=== PATIENT | male | born 1965 | race Two or more races ===

== ENCOUNTER 2020-03-30 14:59 | Inpatient (IN) | payer MEDICAID, OTHER ==
[~2020-03-30] VITALS: Ht 165.1 cm; Wt 104.0 kg
[2020-03-30 15:29] LABS: Basophils # (auto) 0 10 ^3/uL (0-0.2); Basophils % (auto) 0.3 % (0.0-2.0); Eosinophils # (auto) 0.1 10 ^3/uL (0-0.8); Eosinophils % (auto) 0.8 % (0.0-7.0); Hematocrit 36.9 % (41.0-53.0); Hemoglobin 12.4 g/dL (13.5-17.5); Lymphocytes # (auto) 1.1 10 ^3/uL (0.4-5.4); Mean Corpuscular Hemoglobin 28.8 pg (28.0-32.0); Mean Corpuscular Hgb Conc. 33.5 g/dL (32.0-36.0); Mean Corpuscular Volume 85.9 fL (80.0-100.0); Monocytes # (auto) 0.8 10 ^3/uL (0-1.3); Monocytes % (auto) 9.2 % (0.0-12.0); Neutrophils # (auto) 6.9 10 ^3/uL (1.6-8.6); Neutrophils % (auto) 77.7 % (37.0-80.0); Platelet Count (auto) 219 10^3/uL (140-450); Red Cell Distribution Width 13.6 % (11.8-14.3); White Blood Cell 8.8 10^3/uL (4.4-10.8)
[2020-03-30 15:40] LABS: Albumin 3.2 g/dL (3.4-5.0); BUN/Creatinine Ratio 15.7; Calcium 8.8 mg/dL (8.5-10.1); Potassium 4.3 mmol/L (3.5-5.1)
[2020-03-30 15:45] LABS: Bilirubin, Total 0.5 mg/dL (0.2-1.0); Total Protein 6.8 g/dL (6.4-8.2)
[2020-03-30 16:08] LABS: Urine Bacteria NONE SEEN /hpf (None Seen); Urine Blood Negative /uL (Negative); Urine Hyaline Cast FEW /lpf (0 - 2); Urine Specific Gravity 1.013 (1.001-1.035); Urine WBC 2 /hpf (0 - 3)
[2020-03-30] MEDS ORDERED: ASPirin 81 mg TAB PO ONE (16:15)
[2020-03-30] MEDS ORDERED: ENOXAPARIN SOD 100 MG/1 ML SYRINGE SC ONE (16:15)
[2020-03-30] MEDS ORDERED: FUROSEMIDE 20 MG/2 ML VIAL IV ONE (17:30)
[2020-03-30] MEDS ORDERED: NITROGLYCERIN 0.4 MG SL TAB SL PRN (17:30)
[2020-03-30] MEDS ORDERED: MORPHINE SULF INJ 2 MG/ML SYRINGE 1ML IV PRN ×2 (17:30)
[2020-03-30] MEDS ORDERED: hydrALAZINE HCL 20 MG/ML VL IV PRN (17:30)
[2020-03-30] MEDS ORDERED: HYDROcodone-ACET 5/325MG TAB PO PRN (17:30)
[2020-03-30] MEDS ORDERED: ONDANSETRON HCL 4 MG/2 ML VIAL IV PRN (17:30)
[2020-03-30] MEDS ORDERED: ENALAPRILAT 1.25 MG/ML-1ML VIAL IV PRN (17:30)
[2020-03-30] MEDS ORDERED: HEPARIN DRIP/D5W 100UNITS/ML 250 ML IV SCH (17:30)
[2020-03-30] MEDS ORDERED: ACETAMINOPHEN 500 MG TAB PO PRN (17:30)
[2020-03-30 18:15] LABS: INR 1.12 (0.9-1.15); Partial Thromboplastin Time 28.5 sec (23.0-31.2)
[2020-03-30] MEDS ORDERED: CLOPIDOGREL BISULFATE 75 MG TAB PO ONE (18:45)
[2020-03-30] MEDS: DOCUSATE SOD 100 MG CAP PO SCH (22:00)
[2020-03-30] MEDS: ATORVASTATIN 20 MG TAB PO SCH (22:00)
[2020-03-31 01:31] LABS: Basophils # (auto) 0 10 ^3/uL (0-0.2); Basophils % (auto) 0.4 % (0.0-2.0); Eosinophils # (auto) 0.1 10 ^3/uL (0-0.8); Eosinophils % (auto) 1.2 % (0.0-7.0); Hematocrit 37.4 % (41.0-53.0); Hemoglobin 12.5 g/dL (13.5-17.5); Lymphocytes # (auto) 1.6 10 ^3/uL (0.4-5.4); Lymphocytes % (auto) 20.6 % (10.0-50.0); Mean Corpuscular Hemoglobin 28.8 pg (28.0-32.0); Mean Corpuscular Hgb Conc. 33.5 g/dL (32.0-36.0); Monocytes # (auto) 0.7 10 ^3/uL (0-1.3); Monocytes % (auto) 9.3 % (0.0-12.0); Neutrophils # (auto) 5.4 10 ^3/uL (1.6-8.6); Neutrophils % (auto) 68.5 % (37.0-80.0); Nucleated Red Blood Cells % 0.1 %; Platelet Count (auto) 256 10^3/uL (140-450); Red Blood Cells 4.35 10^6/uL (4.5-5.90); Red Cell Distribution Width 13.6 % (11.8-14.3)
[2020-03-31 01:44] LABS: INR 1.17 (0.9-1.15)
[2020-03-31] MEDS ORDERED: HEPARIN SODIUM (PORCINE) 5000 UNITS/ML 1ML VIAL IV ONE (02:15)
[2020-03-31] MEDS ORDERED: GLUCAGON HYDROCHLORIDE (RDNA) 1 MG VIAL IV ONE (02:45)
[2020-03-31] MEDS: HEPARIN DRIP/D5W 100UNITS/ML 250 ML IV SCH (07:30)
[2020-03-31 08:47] LABS: INR 1.19 (0.9-1.15); Partial Thromboplastin Time 38.4 sec (23.0-31.2)
[2020-03-31] MEDS: ASPirin-EC 81 mg tab PO SCH (10:35)
[2020-03-31] MEDS: FAMOTIDINE 20 MG TAB PO SCH (10:35)
[2020-03-31] MEDS: DOCUSATE SOD 100 MG CAP PO SCH ×2 (10:35→21:48)
[2020-03-31] MEDS: CLOPIDOGREL BISULFATE 75 MG TAB PO SCH (10:35)
[2020-03-31] MEDS: LISINOPRIL 10 MG TAB PO SCH (10:36)
[2020-03-31 10:57] LABS: Cholesterol 159 mg/dL (< 200)
[2020-03-31 11:00] LABS: HDL Cholesterol 30 mg/dL (40-59); LDL Cholesterol 110 mg/dL (< 100); Triglycerides 130 mg/dL (< 150)
[2020-03-31] MEDS: NITROGLYCERIN 0.4MG/HR TOPICAL PATCH TD SCH (11:00)
[2020-03-31 15:27] LABS: INR 1.3 (0.9-1.15); Partial Thromboplastin Time 55.3 sec (23.0-31.2)
[2020-03-31 18:05] VITALS: BP 111/71
[2020-03-31 18:15] VITALS: BP 111/71
[2020-03-31 18:30] VITALS: BP 116/66
[2020-03-31 20:00] VITALS: BP 112/57
[2020-03-31] MEDS ORDERED: METF-370 PO (20:35)
[2020-03-31] MEDS ORDERED: LISI40TA11 PO (20:35)
[2020-03-31 21:23] LABS: INR 1.17 (0.9-1.15); Partial Thromboplastin Time 45.2 sec (23.0-31.2)
[2020-03-31] MEDS: ATORVASTATIN 20 MG TAB PO SCH (21:48)
[2020-04-01] VITALS (21 sets, daily range): BP systolic 104–177; BP diastolic 49–109
[2020-04-01] MEDS: HEPARIN DRIP/D5W 100UNITS/ML 250 ML IV SCH (03:35)
[2020-04-01 04:19] LABS: Basophils # (auto) 0.1 10 ^3/uL (0-0.2); Basophils % (auto) 0.6 % (0.0-2.0); Eosinophils # (auto) 0.3 10 ^3/uL (0-0.8); Eosinophils % (auto) 3.3 % (0.0-7.0); Hematocrit 38.8 % (41.0-53.0); Hemoglobin 12.8 g/dL (13.5-17.5); Lymphocytes # (auto) 2.4 10 ^3/uL (0.4-5.4); Lymphocytes % (auto) 28.7 % (10.0-50.0); Mean Corpuscular Hemoglobin 28.5 pg (28.0-32.0); Mean Corpuscular Volume 86.5 fL (80.0-100.0); Monocytes # (auto) 0.9 10 ^3/uL (0-1.3); Monocytes % (auto) 10.9 % (0.0-12.0); Neutrophils # (auto) 4.8 10 ^3/uL (1.6-8.6); Neutrophils % (auto) 56.5 % (37.0-80.0); Platelet Count (auto) 296 10^3/uL (140-450); Red Blood Cells 4.48 10^6/uL (4.5-5.90); Red Cell Distribution Width 13.8 % (11.8-14.3); White Blood Cell 8.5 10^3/uL (4.4-10.8)
[2020-04-01 04:36] LABS: INR 1.13 (0.9-1.15); Partial Thromboplastin Time 47.6 sec (23.0-31.2)
[2020-04-01 04:44] LABS: Potassium 3.6 mmol/L (3.5-5.1)
[2020-04-01 04:46] LABS: BUN/Creatinine Ratio 13.1
[2020-04-01 04:48] LABS: Calcium 8.6 mg/dL (8.5-10.1)
[2020-04-01] MEDS: FAMOTIDINE 20 MG TAB PO SCH (09:58)
[2020-04-01] MEDS: DOCUSATE SOD 100 MG CAP PO SCH ×2 (09:59→20:50)
[2020-04-01] MEDS: ASPirin-EC 81 mg tab PO SCH (09:59)
[2020-04-01] MEDS: LISINOPRIL 10 MG TAB PO SCH (09:59)
[2020-04-01] MEDS: NITROGLYCERIN 0.4MG/HR TOPICAL PATCH TD SCH (10:00)
[2020-04-01] MEDS: CLOPIDOGREL BISULFATE 75 MG TAB PO SCH (10:23)
[2020-04-01 10:30] LABS: INR 1.14 (0.9-1.15); Partial Thromboplastin Time 59.4 sec (23.0-31.2)
[2020-04-01] MEDS ORDERED: IODIXANOL 320MG/ML 100ML BTL IV ONE ×2 (12:46→13:48)
[2020-04-01] MEDS ORDERED: LIDOCAINE 2%HCL (LOCAL ANESTH.) INJ 20ML MDV ONE (12:46)
[2020-04-01] MEDS ORDERED: HEPARIN SODIUM (PORCINE) 5000 UNITS/ML 1ML VIAL ONE (12:59)
[2020-04-01] MEDS ORDERED: VERAPAMIL 2.5MG/ML INJ 2ML VIAL IV ONE (12:59)
[2020-04-01] MEDS ORDERED: fentaNYL CITRATE 100 MCG/2 ML VL ONE (12:59)
[2020-04-01] MEDS ORDERED: ANGIOMAX 250 MG VIAL IV ONE (12:59)
[2020-04-01] MEDS ORDERED: MIDAZOLAM HCL 1MG/1ML-2 ML VIAL ONE (13:00)
[2020-04-01] MEDS ORDERED: SODIUM CHL 0.9% 0 ML ONE (13:00)
[2020-04-01] MEDS: ATORVASTATIN 20 MG TAB PO SCH (20:49)
[2020-04-02] VITALS (22 sets, daily range): BP systolic 107–148; BP diastolic 56–96
[2020-04-02] MEDS: FAMOTIDINE 20 MG TAB PO SCH (09:57)
[2020-04-02] MEDS: LISINOPRIL 10 MG TAB PO SCH (09:58)
[2020-04-02] MEDS: NITROGLYCERIN 0.4MG/HR TOPICAL PATCH TD SCH (10:00)
[2020-04-02] MEDS: DOCUSATE SOD 100 MG CAP PO SCH ×2 (10:00→22:00)
[2020-04-02] MEDS: SODIUM CHLORIDE 0.9% 1,000 ML IV SCH ×2 (10:16→22:00)
[2020-04-02] MEDS ORDERED: ENOXAPARIN SOD 100 MG/1 ML SYRINGE SC ONE (12:00)
[2020-04-02] MEDS ORDERED: ACCU-CHEK COMFORT CURVE STRIP VI ONE ×2 (12:45→17:00)
[2020-04-02] MEDS ORDERED: ACETYLCYSTEINE ORAL for CIN 20%(200MG/ML) 4ML PO ONE (12:45)
[2020-04-02] MEDS ORDERED: DEXTROSE (50%) 50ML SYRG IV ONE (12:45)
[2020-04-02 13:50] LABS: BUN/Creatinine Ratio 12.5; Calcium 7.9 mg/dL (8.5-10.1); Potassium 3.8 mmol/L (3.5-5.1)
[2020-04-02] MEDS ORDERED: InsuLIN REG 1unit/0.01ml Soln (100units/ml) SC ONE (17:00)
[2020-04-02] MEDS: ACCU-CHEK COMFORT CURVE STRIP VI SCH ×2 (18:26→22:17)
[2020-04-02] MEDS: ATORVASTATIN 20 MG TAB PO SCH (22:16)
[2020-04-02] MEDS: ENOXAPARIN SOD 100 MG/1 ML SYRINGE SC SCH (22:17)
[2020-04-02] MEDS: ACETYLCYSTEINE ORAL for CIN 20%(200MG/ML) 4ML PO SCH (22:19)
[2020-04-03] VITALS (21 sets, daily range): BP systolic 127–173; BP diastolic 80–110
[2020-04-03] MEDS: SODIUM CHLORIDE 0.9% 1,000 ML IV SCH (02:25)
[2020-04-03 05:02] LABS: Basophils # (auto) 0 10 ^3/uL (0-0.2); Basophils % (auto) 0.2 % (0.0-2.0); Eosinophils # (auto) 0.1 10 ^3/uL (0-0.8); Eosinophils % (auto) 2.1 % (0.0-7.0); Hematocrit 33.5 % (41.0-53.0); Lymphocytes # (auto) 0.8 10 ^3/uL (0.4-5.4); Lymphocytes % (auto) 13.4 % (10.0-50.0); Mean Corpuscular Hemoglobin 28.3 pg (28.0-32.0); Mean Corpuscular Hgb Conc. 32.8 g/dL (32.0-36.0); Mean Corpuscular Volume 86.4 fL (80.0-100.0); Monocytes # (auto) 0.8 10 ^3/uL (0-1.3); Monocytes % (auto) 12.3 % (0.0-12.0); Neutrophils # (auto) 4.5 10 ^3/uL (1.6-8.6); Platelet Count (auto) 261 10^3/uL (140-450); Red Blood Cells 3.88 10^6/uL (4.5-5.90); Red Cell Distribution Width 13.5 % (11.8-14.3); White Blood Cell 6.2 10^3/uL (4.4-10.8)
[2020-04-03 05:19] LABS: INR 1.18 (0.9-1.15); Partial Thromboplastin Time 33.9 sec (23.0-31.2)
[2020-04-03 05:33] LABS: Calcium 8.6 mg/dL (8.5-10.1); Potassium 3.7 mmol/L (3.5-5.1)
[2020-04-03 05:36] LABS: BUN/Creatinine Ratio 11.8
[2020-04-03] MEDS: ACCU-CHEK COMFORT CURVE STRIP VI SCH ×3 (06:35→17:00)
[2020-04-03] MEDS: DOCUSATE SOD 100 MG CAP PO SCH ×2 (09:22→22:00)
[2020-04-03] MEDS: NITROGLYCERIN 0.4MG/HR TOPICAL PATCH TD SCH (09:28)
[2020-04-03] MEDS: LISINOPRIL 10 MG TAB PO SCH (09:29)
[2020-04-03] MEDS: ENOXAPARIN SOD 100 MG/1 ML SYRINGE SC SCH ×2 (09:30→22:15)
[2020-04-03] MEDS ORDERED: MIDAZOLAM HCL 1MG/1ML-2 ML VIAL ONE ×2 (09:35→10:27)
[2020-04-03] MEDS ORDERED: diphenhdrAMINE HCL 50 MG/1 ML VL ONE (09:35)
[2020-04-03] MEDS ORDERED: fentaNYL CITRATE 100 MCG/2 ML VL ONE ×2 (09:35→10:27)
[2020-04-03] MEDS ORDERED: VANCOMYCIN HCL 1000 MG VL ONE (09:35)
[2020-04-03] MEDS ORDERED: VANCOMYCIN 1GM/250ML 250 ML IV ONE (09:36)
[2020-04-03] MEDS ORDERED: LIDOCAINE 2%HCL (LOCAL ANESTH.) INJ 20ML MDV ONE (09:36)
[2020-04-03] MEDS: FAMOTIDINE 20 MG TAB PO SCH ×2 (10:00→12:23)
[2020-04-03] MEDS ORDERED: IOHEXOL 350 MG/ML 100ML IJ ONE (10:13)
[2020-04-03] MEDS: ACETYLCYSTEINE ORAL for CIN 20%(200MG/ML) 4ML PO SCH (12:25)
[2020-04-03] MEDS ORDERED: CLOPIDOGREL BISULFATE 75 MG TAB PO ONE (14:15)
[2020-04-03] MEDS ORDERED: METOPROLOL TARTRATE 50 MG TAB PO ONE (14:15)
[2020-04-03] MEDS ORDERED: LOSARTAN POTASSIUM 50 MG TAB PO ONE (14:15)
[2020-04-03] MEDS ORDERED: ASPirin-EC 81 mg tab PO ONE (14:15)
[2020-04-03] MEDS: cloNIDine HCL 0.1 MG TAB PO PRN (16:19)
[2020-04-03] MEDS: ATORVASTATIN 20 MG TAB PO SCH (22:15)
[2020-04-04 05:00] VITALS: BP 141/79
[2020-04-04 09:00] VITALS: BP 146/96
[2020-04-04] MEDS: FAMOTIDINE 20 MG TAB PO SCH (10:00)
[2020-04-04] MEDS: DOCUSATE SOD 100 MG CAP PO SCH ×2 (10:00→22:00)
[2020-04-04] MEDS: LOSARTAN POTASSIUM 50 MG TAB PO SCH (10:33)
[2020-04-04] MEDS: METOPROLOL TARTRATE 50 MG TAB PO SCH (10:34)
[2020-04-04] MEDS: CLOPIDOGREL BISULFATE 75 MG TAB PO SCH (11:17)
[2020-04-04] MEDS: ASPirin-EC 81 mg tab PO SCH (11:17)
[2020-04-04] MEDS: ENOXAPARIN SOD 100 MG/1 ML SYRINGE SC SCH ×2 (11:17→22:00)
[2020-04-04] MEDS: cloNIDine HCL 0.1 MG TAB PO PRN (12:25)
[2020-04-04 13:00] VITALS: BP 155/94
[2020-04-04 17:00] VITALS: BP 145/96
[2020-04-04 22:00] VITALS: BP 142/92
[2020-04-04] MEDS: ATORVASTATIN 20 MG TAB PO SCH (22:11)
[2020-04-05 05:00] VITALS: BP 159/96
[2020-04-05 05:45] LABS: Basophils # (auto) 0 10 ^3/uL (0-0.2); Basophils % (auto) 0.5 % (0.0-2.0); Eosinophils # (auto) 0.3 10 ^3/uL (0-0.8); Eosinophils % (auto) 4.5 % (0.0-7.0); Hematocrit 32.5 % (41.0-53.0); Lymphocytes # (auto) 1.1 10 ^3/uL (0.4-5.4); Lymphocytes % (auto) 19.2 % (10.0-50.0); Mean Corpuscular Hemoglobin 28.9 pg (28.0-32.0); Mean Corpuscular Hgb Conc. 33.7 g/dL (32.0-36.0); Mean Corpuscular Volume 85.6 fL (80.0-100.0); Monocytes # (auto) 0.5 10 ^3/uL (0-1.3); Monocytes % (auto) 9.1 % (0.0-12.0); Neutrophils % (auto) 66.7 % (37.0-80.0); Platelet Count (auto) 284 10^3/uL (140-450); Red Cell Distribution Width 13.4 % (11.8-14.3); White Blood Cell 5.9 10^3/uL (4.4-10.8)
[2020-04-05 06:02] LABS: BUN/Creatinine Ratio 18.3; Calcium 8.4 mg/dL (8.5-10.1); INR 1.13 (0.9-1.15); Partial Thromboplastin Time 31.3 sec (23.0-31.2); Potassium 4.1 mmol/L (3.5-5.1)
[2020-04-05 07:30] VITALS: BP 163/104
[2020-04-05] MEDS ORDERED: IOHEXOL 350 MG/ML 100ML IJ ONE ×2 (09:00→09:36)
[2020-04-05] MEDS ORDERED: LIDOCAINE 2%HCL (LOCAL ANESTH.) INJ 20ML MDV ONE (09:00)
[2020-04-05] MEDS ORDERED: SODIUM CHL 0.9% 50 ML ONE ×2 (09:01→09:41)
[2020-04-05] MEDS ORDERED: ANGIOMAX 250 MG VIAL IV ONE ×2 (09:01→09:41)
[2020-04-05] MEDS ORDERED: fentaNYL CITRATE 100 MCG/2 ML VL ONE (09:01)
[2020-04-05] MEDS ORDERED: MIDAZOLAM HCL 1MG/1ML-2 ML VIAL ONE (09:01)
[2020-04-05] MEDS ORDERED: hydrALAZINE HCL 20 MG/ML VL ONE (09:26)
[2020-04-05] MEDS: ENOXAPARIN SOD 100 MG/1 ML SYRINGE SC SCH (10:00)
[2020-04-05] MEDS: DOCUSATE SOD 100 MG CAP PO SCH (10:00)
[2020-04-05] MEDS ORDERED: CLOPIDOGREL BISULFATE 75 MG TAB ONE (10:06)
[2020-04-05] MEDS ORDERED: ASPirin 81 mg TAB ONE (10:07)
[2020-04-05 12:32] VITALS: BP 149/103
[2020-04-05] MEDS: METOPROLOL TARTRATE 50 MG TAB PO SCH (12:34)
[2020-04-05] MEDS: ASPirin-EC 81 mg tab PO SCH (12:34)
[2020-04-05] MEDS: LOSARTAN POTASSIUM 50 MG TAB PO SCH (12:34)
[2020-04-05] MEDS: CLOPIDOGREL BISULFATE 75 MG TAB PO SCH (12:35)
[2020-04-05] MEDS: FAMOTIDINE 20 MG TAB PO SCH (12:35)
[2020-04-05] MEDS: ATORVASTATIN 20 MG TAB PO SCH (12:35)
[2020-04-05] MEDS ORDERED: SODIUM CHLOR 0.9% PF (SALINE LOCK) 10ML VIAL/SYR IV SCH (14:00)
[2020-04-05] MEDS ORDERED: MET50T PO ×2 (14:34→15:10)
[2020-04-05] MEDS ORDERED: CLOP75TA28 PO (14:34)
[2020-04-05] MEDS ORDERED: ASPI-543 PO (14:34)
[2020-04-05] MEDS ORDERED: FAMO-12 PO ×2 (14:34→15:09)
[2020-04-05] MEDS ORDERED: ATOR20TA50 PO ×2 (14:34→15:09)
[2020-04-05] MEDS ORDERED: DOXY-338 PO (14:55)
[2020-04-05 15:32] VITALS: BP 149/103
[2020-04-05 17:00] VITALS: BP 145/94
== END 2020-04-05 18:00 | disposition home or self-care (01) | DRG 174 ==
LOC: ER 14:59 → TELE 15:00 → DOU IN ICU 03-31 18:16 → ICU WEST 04-01 15:35 → TELE-WESTW 04-03 22:01
PROVIDERS: ADMIT Nurse Practitioner Acute Care; ATTEND Internal Medicine
PROC: B2151ZZ Fluoroscopy of Left Heart using Low Osmolar Contrast (ICD-10-PCS; 2020-04-01)
PROC: B2111ZZ Fluoroscopy of Multiple Coronary Arteries using Low Osmolar Contrast (ICD-10-PCS; 2020-04-01)
PROC: 4A023N7 Measurement of Cardiac Sampling and Pressure, Left Heart, Percutaneous Approach (ICD-10-PCS; 2020-04-01)
PROC: 5A1223Z Performance of Cardiac Pacing, Continuous (ICD-10-PCS; 2020-04-01)
PROC: 0JH606Z Insertion of Pacemaker, Dual Chamber into Chest Subcutaneous Tissue and Fascia, Open Approach (ICD-10-PCS; principal; 2020-04-03)
PROC: 02H63JZ Insertion of Pacemaker Lead into Right Atrium, Percutaneous Approach (ICD-10-PCS; 2020-04-03)
PROC: 02HK3JZ Insertion of Pacemaker Lead into Right Ventricle, Percutaneous Approach (ICD-10-PCS; 2020-04-03)
PROC: 027135Z Dilation of Coronary Artery, Two Arteries with Two Drug-eluting Intraluminal Devices, Percutaneous Approach (ICD-10-PCS; 2020-04-05)
DX: I21.4 Non-ST elevation (NSTEMI) myocardial infarction (principal); I50.21 Acute systolic (congestive) heart failure; N17.0 Acute kidney failure with tubular necrosis; I44.1 Atrioventricular block, second degree; E87.1 Hypo-osmolality and hyponatremia; E44.1 Mild protein-calorie malnutrition; E66.9 Obesity, unspecified; N18.30 Chronic kidney disease, stage 3 unspecified; E11.65 Type 2 diabetes mellitus with hyperglycemia; E11.22 Type 2 diabetes mellitus with diabetic chronic kidney disease; E78.00 Pure hypercholesterolemia, unspecified; I13.0 Hypertensive heart and chronic kidney disease with heart failure and stage 1 through stage 4 chronic kidney disease, or unspecified chronic kidney disease; I25.10 Atherosclerotic heart disease of native coronary artery without angina pectoris; I49.5 Sick sinus syndrome; E78.5 Hyperlipidemia, unspecified; I08.0 Rheumatic disorders of both mitral and aortic valves; Z79.02 Long term (current) use of antithrombotics/antiplatelets; Z20.828 Contact with and (suspected) exposure to other viral communicable diseases; Z68.38 Body mass index [BMI] 38.0-38.9, adult
CPT/HCPCS: 33208; 36415; 71045; 71046; 80048; 80053; 80061; 81001; 82962; 83880; 84443; 84484; 85025; 85610; 85730; 86141; 86850; 86900; 86901; 87081; 87426; 92920; 92928; 93005; 93306; 93458; 96372; 99152; 99153; 99291; C1785; C1874; C1887; G0378; J1815; J2250; Q9967

== ENCOUNTER 2020-08-22 13:48 | Inpatient (IN) | payer MEDICAID ==
[~2020-08-22] VITALS: Ht 165.1 cm; Wt 94.3 kg
[~2020-08-22 13:48] MED LIST: ASPI-543 PO; ATOR20TA50 PO; CLOP75TA28 PO; DOXY-338 PO; FAMO-12 PO; LISI40TA11 PO; MET50T PO; METF-370 PO
[2020-08-22 14:27] LABS: Basophils # (auto) 0 10 ^3/uL (0-0.2); Basophils % (auto) 0.6 % (0.0-2.0); Eosinophils # (auto) 0 10 ^3/uL (0-0.8); Eosinophils % (auto) 0.6 % (0.0-7.0); Hematocrit 42.3 % (41.0-53.0); Hemoglobin 14.4 g/dL (13.5-17.5); Lymphocytes % (auto) 13.1 % (10.0-50.0); Mean Corpuscular Hemoglobin 29.1 pg (28.0-32.0); Mean Corpuscular Hgb Conc. 34.1 g/dL (32.0-36.0); Mean Corpuscular Volume 85.1 fL (80.0-100.0); Monocytes # (auto) 0.5 10 ^3/uL (0-1.3); Monocytes % (auto) 6.8 % (0.0-12.0); Neutrophils # (auto) 6.1 10 ^3/uL (1.6-8.6); Neutrophils % (auto) 78.9 % (37.0-80.0); Nucleated Red Blood Cells % 0.3 %; Platelet Count (auto) 160 10^3/uL (140-450); Red Blood Cells 4.97 10^6/uL (4.5-5.90); Red Cell Distribution Width 14.4 % (11.8-14.3); White Blood Cell 7.7 10^3/uL (4.4-10.8)
[2020-08-22 14:42] LABS: Albumin 3.8 g/dL (3.4-5.0); BUN/Creatinine Ratio 13.8; Calcium 8.2 mg/dL (8.5-10.1); Potassium 4.7 mmol/L (3.5-5.1)
[2020-08-22 14:47] LABS: Bilirubin, Total 0.6 mg/dL (0.2-1.0); Total Protein 7.5 g/dL (6.4-8.2)
[2020-08-22] MEDS ORDERED: ASPirin 81 mg TAB PO ONE (15:00)
[2020-08-22] MEDS ORDERED: ASPirin 81 mg TAB ONE (15:00)
[2020-08-22] MEDS ORDERED: NITROGLYCERIN 0.4 MG SL TAB SL PRN (16:45)
[2020-08-22] MEDS ORDERED: MORPHINE SULF INJ 2 MG/ML SYRINGE 1ML IV PRN (16:45)
[2020-08-22] MEDS ORDERED: HEPARIN DRIP/D5W 100UNITS/ML 250 ML IV SCH (16:45)
[2020-08-22] MEDS ORDERED: ONDANSETRON HCL 4 MG/2 ML VIAL IV PRN (17:15)
[2020-08-22] MEDS ORDERED: ACETAMINOPHEN 325 MG TAB PO PRN (17:15)
[2020-08-22] MEDS ORDERED: HYDROcodone-ACET 5/325MG TAB PO PRN (17:15)
[2020-08-22 17:20] LABS: INR 1.07 (0.9-1.15); Partial Thromboplastin Time 27.2 sec (23.0-31.2)
[2020-08-22] MEDS ORDERED: HEPARIN SODIUM (PORCINE) 5000 UNITS/ML 1ML VIAL IV ONE (17:45)
[2020-08-22] MEDS ORDERED: HEPARIN SODIUM (PORCINE) 5000 UNITS/ML 1ML VIAL ONE (17:56)
[2020-08-22 18:09] LABS: Urine Bacteria NONE SEEN /hpf (None Seen); Urine Blood Negative /uL (Negative); Urine Hyaline Cast FEW /lpf (0 - 2); Urine Specific Gravity 1.014 (1.001-1.035); Urine WBC 1 /hpf (0 - 3)
[2020-08-22] MEDS: HEPARIN DRIP/D5W 100UNITS/ML 250 ML IV SCH (18:14)
[2020-08-22 18:55] LABS: INR 1.07 (0.9-1.15); Partial Thromboplastin Time 24.8 sec (23.0-31.2)
[2020-08-22 20:30] VITALS: BP 127/92
[2020-08-22 21:00] VITALS: BP 148/105
[2020-08-22 22:00] VITALS: BP 147/105
[2020-08-22] MEDS ORDERED: ATORVASTATIN 20 MG TAB PO ONE (22:00)
[2020-08-22 23:00] VITALS: BP 138/103
[2020-08-23] VITALS (49 sets, daily range): BP systolic 109–162; BP diastolic 63–101
[2020-08-23 01:17] LABS: INR 1.13 (0.9-1.15); Partial Thromboplastin Time 35.1 sec (23.0-31.2)
[2020-08-23 05:42] LABS: Basophils # (auto) 0 10 ^3/uL (0-0.2); Basophils % (auto) 0.8 % (0.0-2.0); Eosinophils # (auto) 0.1 10 ^3/uL (0-0.8); Eosinophils % (auto) 2.1 % (0.0-7.0); Hemoglobin 12.9 g/dL (13.5-17.5); Lymphocytes # (auto) 1.6 10 ^3/uL (0.4-5.4); Lymphocytes % (auto) 26.2 % (10.0-50.0); Mean Corpuscular Hemoglobin 28.6 pg (28.0-32.0); Mean Corpuscular Hgb Conc. 33.8 g/dL (32.0-36.0); Mean Corpuscular Volume 84.5 fL (80.0-100.0); Monocytes # (auto) 0.5 10 ^3/uL (0-1.3); Monocytes % (auto) 9.1 % (0.0-12.0); Neutrophils # (auto) 3.7 10 ^3/uL (1.6-8.6); Neutrophils % (auto) 61.8 % (37.0-80.0); Nucleated Red Blood Cells % 0.1 %; Platelet Count (auto) 139 10^3/uL (140-450); Red Cell Distribution Width 14.3 % (11.8-14.3)
[2020-08-23 06:06] LABS: BUN/Creatinine Ratio 18.2; Calcium 8.4 mg/dL (8.5-10.1); Magnesium 2.1 mg/dL (1.6-2.6); Potassium 3.8 mmol/L (3.5-5.1)
[2020-08-23 08:17] LABS: INR 1.16 (0.9-1.15)
[2020-08-23 08:22] LABS: Partial Thromboplastin Time 70.6 sec (23.0-31.2)
[2020-08-23] MEDS ORDERED: ASPirin 81 mg TAB PO ONE (10:00)
[2020-08-23] MEDS ORDERED: LISINOPRIL 20 MG TAB PO SCH (10:00)
[2020-08-23] MEDS ORDERED: METOPROLOL TARTRATE 50 MG TAB PO SCH (10:00)
[2020-08-23] MEDS ORDERED: ASPirin 81 mg TAB PO SCH (10:00)
[2020-08-23] MEDS ORDERED: CLOPIDOGREL BISULFATE 75 MG TAB PO SCH (10:00)
[2020-08-23] MEDS ORDERED: VERAPAMIL 2.5MG/ML INJ 2ML VIAL IV ONE (10:04)
[2020-08-23] MEDS ORDERED: fentaNYL CITRATE 100 MCG/2 ML VL ONE (10:04)
[2020-08-23] MEDS ORDERED: ANGIOMAX 250 MG VIAL IV ONE (10:04)
[2020-08-23] MEDS ORDERED: HEPARIN SODIUM (PORCINE) 5000 UNITS/ML 1ML VIAL ONE (10:04)
[2020-08-23] MEDS ORDERED: LIDOCAINE 2%HCL (LOCAL ANESTH.) INJ 20ML MDV ONE (10:05)
[2020-08-23] MEDS ORDERED: MIDAZOLAM HCL 1MG/1ML-2 ML VIAL ONE ×2 (10:05→10:55)
[2020-08-23] MEDS ORDERED: SODIUM CHL 0.9% 0 ML ONE (10:05)
[2020-08-23] MEDS ORDERED: diphenhdrAMINE HCL 50 MG/1 ML VL ONE (10:39)
[2020-08-23] MEDS ORDERED: NITROGLYCERIN 50MG/250ML 250 ML IV SCH (12:00)
[2020-08-23] MEDS ORDERED: NITROGLYCERIN 50MG/250ML 250 ML IV ONE (12:08)
[2020-08-23] MEDS: HEPARIN DRIP/D5W 100UNITS/ML 250 ML IV SCH ×2 (12:45→14:51)
[2020-08-23 13:09] LABS: Basophils # (auto) 0 10 ^3/uL (0-0.2); Basophils % (auto) 0.5 % (0.0-2.0); Eosinophils # (auto) 0.1 10 ^3/uL (0-0.8); Eosinophils % (auto) 1.9 % (0.0-7.0); Hematocrit 37.4 % (41.0-53.0); Hemoglobin 12.5 g/dL (13.5-17.5); Lymphocytes # (auto) 1.4 10 ^3/uL (0.4-5.4); Lymphocytes % (auto) 21.2 % (10.0-50.0); Mean Corpuscular Hemoglobin 28.2 pg (28.0-32.0); Mean Corpuscular Hgb Conc. 33.5 g/dL (32.0-36.0); Mean Corpuscular Volume 84.2 fL (80.0-100.0); Monocytes # (auto) 0.6 10 ^3/uL (0-1.3); Neutrophils # (auto) 4.3 10 ^3/uL (1.6-8.6); Neutrophils % (auto) 66.4 % (37.0-80.0); Nucleated Red Blood Cells % 0.1 %; Platelet Count (auto) 147 10^3/uL (140-450); Red Blood Cells 4.44 10^6/uL (4.5-5.90); Red Cell Distribution Width 14.6 % (11.8-14.3); White Blood Cell 6.4 10^3/uL (4.4-10.8)
[2020-08-23 13:48] LABS: INR 1.17 (0.9-1.15)
[2020-08-23 13:51] LABS: Partial Thromboplastin Time 113.4 sec (23.0-31.2)
[2020-08-23] MEDS: MORPHINE SULF INJ 2 MG/ML SYRINGE 1ML IV PRN ×2 (17:38→21:00)
[2020-08-23 19:05] LABS: INR 1.14 (0.9-1.15); Partial Thromboplastin Time 49.7 sec (23.0-31.2)
[2020-08-23] MEDS ORDERED: ATORVASTATIN 20 MG TAB PO SCH (22:00)
== END 2020-08-23 22:50 | disposition short-term general hospital (02) | DRG 192 ==
LOC: ER 13:48 → OVERFLOW 17:23 → DOU IN ICU 20:46 → ICU WEST 08-23 11:11
PROVIDERS: ADMIT Internal Medicine; ATTEND Internal Medicine
PROC: 4A023N7 Measurement of Cardiac Sampling and Pressure, Left Heart, Percutaneous Approach (ICD-10-PCS; principal; 2020-08-22)
PROC: B211YZZ Fluoroscopy of Multiple Coronary Arteries using Other Contrast (ICD-10-PCS; 2020-08-22)
PROC: B215YZZ Fluoroscopy of Left Heart using Other Contrast (ICD-10-PCS; 2020-08-22)
PROC: 5A02210 Assistance with Cardiac Output using Balloon Pump, Continuous (ICD-10-PCS; 2020-08-22)
PROC: B410YZZ Fluoroscopy of Abdominal Aorta using Other Contrast (ICD-10-PCS; 2020-08-22)
DX: T82.855A Stenosis of coronary artery stent, initial encounter (principal); I21.4 Non-ST elevation (NSTEMI) myocardial infarction; I11.0 Hypertensive heart disease with heart failure; I50.33 Acute on chronic diastolic (congestive) heart failure; E11.65 Type 2 diabetes mellitus with hyperglycemia; E66.01 Morbid (severe) obesity due to excess calories; I42.9 Cardiomyopathy, unspecified; Z20.822 Contact with and (suspected) exposure to COVID-19; I25.10 Atherosclerotic heart disease of native coronary artery without angina pectoris; E78.5 Hyperlipidemia, unspecified; Y83.1 Surgical operation with implant of artificial internal device as the cause of abnormal reaction of the patient, or of later complication, without mention of misadventure at the time of the procedure; Y92.89 Other specified places as the place of occurrence of the external cause; Z98.61 Coronary angioplasty status; Z95.0 Presence of cardiac pacemaker; Z95.1 Presence of aortocoronary bypass graft; Z80.9 Family history of malignant neoplasm, unspecified
CPT/HCPCS: 33967; 36415; 71045; 71046; 75625; 80048; 80053; 81001; 83735; 83880; 84484; 85025; 85379; 85610; 85730; 86850; 86900; 86901; 87081; 87426; 93005; 93458; 96365; 96376; 99152; 99153; 99291; G0378; J2250; J2405

== ENCOUNTER 2020-09-06 20:43 | Inpatient (IN) | payer MEDICAID ==
[~2020-09-06] VITALS: Ht 160 cm; Wt 94.8 kg
[2020-09-06] MEDS ORDERED: IPRATROPIUM BROM 0.5 MG/2.5ML INH SOL NEB ONE (21:15)
[2020-09-06] MEDS ORDERED: methylPREDNISolone SOD SUCC 125 MG/2 ML VL IV ONE (21:15)
[2020-09-06] MEDS ORDERED: ALBUTEROL SULF 2.5 MG/0.5ML(0.5%) NEB SOLN NEB ONE (21:15)
[2020-09-06] MEDS ORDERED: cefTRIAXone 1GM/50ML D5W 50 ML IV ONE (21:15)
[2020-09-06 21:48] LABS: Basophils # (auto) 0.1 10 ^3/uL (0-0.2); Basophils % (auto) 0.7 % (0.0-2.0); Eosinophils # (auto) 0.1 10 ^3/uL (0-0.8); Hematocrit 17.7 % (41.0-53.0); Lymphocytes # (auto) 1.4 10 ^3/uL (0.4-5.4); Monocytes # (auto) 0.6 10 ^3/uL (0-1.3)
[2020-09-06 21:51] LABS: Eosinophils % (auto) 1.1 % (0.0-7.0); Lymphocytes % (auto) 14.9 % (10.0-50.0); Mean Corpuscular Hemoglobin 29.4 pg (28.0-32.0); Mean Corpuscular Hgb Conc. 35.7 g/dL (32.0-36.0); Mean Corpuscular Volume 82.4 fL (80.0-100.0); Monocytes % (auto) 6.9 % (0.0-12.0); Neutrophils # (auto) 7.1 10 ^3/uL (1.6-8.6); Neutrophils % (auto) 76.4 % (37.0-80.0); Platelet Count (auto) 361 10^3/uL (140-450); Red Blood Cells 2.15 10^6/uL (4.5-5.90); Red Cell Distribution Width 14.3 % (11.8-14.3); White Blood Cell 9.3 10^3/uL (4.4-10.8)
[2020-09-06 21:53] LABS: Hemoglobin 6.3 g/dL (13.5-17.5)
[2020-09-06 22:12] LABS: Albumin 2.7 g/dL (3.4-5.0); Calcium 7.9 mg/dL (8.5-10.1); Magnesium 1.7 mg/dL (1.6-2.6); Potassium 3.8 mmol/L (3.5-5.1)
[2020-09-06 22:13] LABS: INR 1.15 (0.9-1.15); Partial Thromboplastin Time 27.1 sec (23.0-31.2)
[2020-09-06 22:19] LABS: BUN/Creatinine Ratio 32.5; Bilirubin, Total 0.3 mg/dL (0.2-1.0); Total Protein 5.5 g/dL (6.4-8.2)
[2020-09-06 23:29] LABS: Urine WBC None Seen /hpf (0 - 3)
[2020-09-06] MEDS ORDERED: IPRATROPIUM BROM 0.5 MG/2.5ML INH SOL NEB PRN (23:45)
[2020-09-06] MEDS ORDERED: NITROGLYCERIN 0.4 MG SL TAB SL PRN (23:45)
[2020-09-06] MEDS ORDERED: ALBUTEROL SULF 2.5 MG/0.5ML(0.5%) NEB SOLN NEB PRN (23:45)
[2020-09-06] MEDS ORDERED: MORPHINE SULF INJ 2 MG/ML SYRINGE 1ML IV PRN (23:45)
[2020-09-06] MEDS ORDERED: SODIUM CHLORIDE 0.9% 1,000 ML IV SCH (23:45)
[2020-09-06] MEDS ORDERED: DOCUSATE SOD 100 MG CAP PO PRN (23:45)
[2020-09-06] MEDS ORDERED: MORPHINE SULFATE 4 MG/ML SYR/VIAL IV PRN (23:45)
[2020-09-06] MEDS ORDERED: HYDROcodone-ACET 5/325MG TAB PO PRN (23:45)
[2020-09-06] MEDS ORDERED: ONDANSETRON HCL 4 MG/2 ML VIAL IV PRN (23:45)
[2020-09-06] MEDS ORDERED: ACETAMINOPHEN 325 MG TAB PO PRN (23:45)
[2020-09-06] MEDS ORDERED: DEXTROSE (50%) 50ML SYRG IV PRN (23:45)
[2020-09-06 23:53] LABS: Urine Bacteria NONE SEEN /hpf (None Seen); Urine Blood Negative /uL (Negative); Urine Mucus FEW (None Seen); Urine Specific Gravity 1.009 (1.001-1.035)
[2020-09-07] VITALS (14 sets, daily range): BP systolic 91–116; BP diastolic 55–74
[2020-09-07] MEDS: ASPirin-EC 81 mg tab PO SCH ×2 (00:35→11:12)
[2020-09-07] MEDS ORDERED: IOHEXOL 350 MG/ML 100ML IJ ONE (00:45)
[2020-09-07] MEDS: ACCU-CHEK COMFORT CURVE STRIP VI SCH ×4 (06:04→21:50)
[2020-09-07] MEDS: InsuLIN REG 1unit/0.01ml Soln (100units/ml) SC SCH ×4 (06:04→21:50)
[2020-09-07] MEDS: CLOPIDOGREL BISULFATE 75 MG TAB PO SCH ×2 (10:00→11:13)
[2020-09-07] MEDS ORDERED: ASPirin-EC 81 mg tab PO SCH (10:00)
[2020-09-07 10:02] LABS: Basophils % (auto) 0.5 % (0.0-2.0); Eosinophils # (auto) 0.1 10 ^3/uL (0-0.8); Eosinophils % (auto) 0.6 % (0.0-7.0); Hemoglobin 7.4 g/dL (13.5-17.5); Lymphocytes # (auto) 0.9 10 ^3/uL (0.4-5.4); Monocytes # (auto) 0.7 10 ^3/uL (0-1.3)
[2020-09-07 10:03] LABS: Basophils # (auto) 0.1 10 ^3/uL (0-0.2); Hematocrit 21.4 % (41.0-53.0); Lymphocytes % (auto) 9.3 % (10.0-50.0); Mean Corpuscular Hemoglobin 28.9 pg (28.0-32.0); Mean Corpuscular Hgb Conc. 34.6 g/dL (32.0-36.0); Mean Corpuscular Volume 83.4 fL (80.0-100.0); Monocytes % (auto) 6.7 % (0.0-12.0); Neutrophils % (auto) 82.9 % (37.0-80.0); Platelet Count (auto) 353 10^3/uL (140-450); Red Blood Cells 2.57 10^6/uL (4.5-5.90); Red Cell Distribution Width 14.9 % (11.8-14.3); White Blood Cell 9.7 10^3/uL (4.4-10.8)
[2020-09-07 10:12] LABS: Albumin 2.8 g/dL (3.4-5.0); Calcium 8.2 mg/dL (8.5-10.1); Potassium 3.5 mmol/L (3.5-5.1)
[2020-09-07 10:16] LABS: Bilirubin, Total 0.6 mg/dL (0.2-1.0); Total Protein 5.6 g/dL (6.4-8.2)
[2020-09-07] MEDS ORDERED: AMIO200T33 PO (10:55)
[2020-09-07] MEDS ORDERED: CAR3125T PO (10:55)
[2020-09-07] MEDS ORDERED: MELA3TAB27 PO (10:55)
[2020-09-07] MEDS ORDERED: PERCOT PO (10:55)
[2020-09-07] MEDS ORDERED: FURO40TA4 PO (10:55)
[2020-09-07] MEDS ORDERED: METF-370 PO (10:55)
[2020-09-07] MEDS ORDERED: SENN1TAB14 PO (10:55)
[2020-09-07] MEDS ORDERED: MAGN400T40 PO (10:55)
[2020-09-07] MEDS: FAMOTIDINE (10MG/ML) 2ML VL IV SCH ×2 (11:11→21:38)
[2020-09-07] MEDS: MULTIPLE VITAMIN TAB PO SCH (11:12)
[2020-09-07] MEDS: FUROSEMIDE 20 MG/2 ML VIAL IV SCH (11:12)
[2020-09-07] MEDS: ASCORBIC ACID 500 MG TAB PO SCH ×2 (11:12→21:38)
[2020-09-07] MEDS: ZINC SULFATE 220mg CAP or TAB PO SCH (11:12)
[2020-09-07] MEDS: ATORVASTATIN 20 MG TAB PO SCH (21:39)
[2020-09-08 05:00] VITALS: BP 114/71
[2020-09-08] MEDS: ACCU-CHEK COMFORT CURVE STRIP VI SCH ×4 (06:14→21:33)
[2020-09-08] MEDS: InsuLIN REG 1unit/0.01ml Soln (100units/ml) SC SCH ×4 (06:15→21:33)
[2020-09-08] MEDS: CLOPIDOGREL BISULFATE 75 MG TAB PO SCH (07:42)
[2020-09-08 09:00] VITALS: BP 126/75
[2020-09-08] MEDS: FUROSEMIDE 20 MG/2 ML VIAL IV SCH (10:28)
[2020-09-08] MEDS: FAMOTIDINE (10MG/ML) 2ML VL IV SCH ×2 (10:29→21:33)
[2020-09-08] MEDS: ZINC SULFATE 220mg CAP or TAB PO SCH (10:29)
[2020-09-08] MEDS: MULTIPLE VITAMIN TAB PO SCH (10:29)
[2020-09-08] MEDS: ASPirin-EC 81 mg tab PO SCH (10:29)
[2020-09-08] MEDS: ASCORBIC ACID 500 MG TAB PO SCH ×2 (10:29→21:32)
[2020-09-08 12:45] VITALS: BP 116/75
[2020-09-08] MEDS ORDERED: DOCUSATE SOD 100 MG CAP PO SCH (13:00)
[2020-09-08] MEDS ORDERED: POLYETHYLENE GLYCOL 17 GM PWDR PO PRN (13:00)
[2020-09-08] MEDS ORDERED: MORPHINE SULF INJ 2 MG/ML SYRINGE 1ML IV PRN (13:15)
[2020-09-08] MEDS ORDERED: METO25TA5 PO (13:31)
[2020-09-08] MEDS ORDERED: FURO1TAB33 PO (13:31)
[2020-09-08] MEDS ORDERED: LISI2.5T47 PO (13:31)
[2020-09-08 14:14] LABS: Basophils # (auto) 0.1 10 ^3/uL (0-0.2); Basophils % (auto) 0.7 % (0.0-2.0); Eosinophils # (auto) 0.3 10 ^3/uL (0-0.8); Hemoglobin 8.3 g/dL (13.5-17.5); Lymphocytes # (auto) 1.2 10 ^3/uL (0.4-5.4); Monocytes # (auto) 0.5 10 ^3/uL (0-1.3); Neutrophils # (auto) 5.6 10 ^3/uL (1.6-8.6); Red Cell Distribution Width 15.3 % (11.8-14.3)
[2020-09-08 14:15] LABS: Eosinophils % (auto) 4.4 % (0.0-7.0); Hematocrit 24.4 % (41.0-53.0); Lymphocytes % (auto) 15.3 % (10.0-50.0); Mean Corpuscular Hemoglobin 28.6 pg (28.0-32.0); Mean Corpuscular Volume 84.3 fL (80.0-100.0); Monocytes % (auto) 6.4 % (0.0-12.0); Neutrophils % (auto) 73.2 % (37.0-80.0); Platelet Count (auto) 412 10^3/uL (140-450); White Blood Cell 7.6 10^3/uL (4.4-10.8)
[2020-09-08 14:32] LABS: BUN/Creatinine Ratio 17.3; Calcium 8.4 mg/dL (8.5-10.1); Potassium 3.5 mmol/L (3.5-5.1)
[2020-09-08] MEDS: DOCUSATE SOD 100 MG CAP PO SCH ×2 (14:36→21:32)
[2020-09-08] MEDS: POLYETHYLENE GLYCOL 17 GM PWDR PO PRN (16:36)
[2020-09-08 17:00] VITALS: BP 110/73
[2020-09-08] MEDS: ATORVASTATIN 20 MG TAB PO SCH (21:32)
[2020-09-08 21:48] VITALS: BP 112/72
[2020-09-09] MEDS ORDERED: LACTULOSE 20Gm/30ML SOLN PO ONE (04:15)
[2020-09-09 04:45] VITALS: BP 126/59
[2020-09-09] MEDS: InsuLIN REG 1unit/0.01ml Soln (100units/ml) SC SCH ×4 (06:11→21:04)
[2020-09-09] MEDS: ACCU-CHEK COMFORT CURVE STRIP VI SCH ×4 (06:11→21:04)
[2020-09-09 09:00] VITALS: BP 122/79
[2020-09-09] MEDS: MULTIPLE VITAMIN TAB PO SCH (09:32)
[2020-09-09] MEDS: CLOPIDOGREL BISULFATE 75 MG TAB PO SCH (09:32)
[2020-09-09] MEDS: ASCORBIC ACID 500 MG TAB PO SCH ×2 (09:32→21:05)
[2020-09-09] MEDS: DOCUSATE SOD 100 MG CAP PO SCH ×2 (09:32→21:04)
[2020-09-09] MEDS: ASPirin-EC 81 mg tab PO SCH (09:32)
[2020-09-09] MEDS: ZINC SULFATE 220mg CAP or TAB PO SCH (09:32)
[2020-09-09] MEDS: FUROSEMIDE 20 MG/2 ML VIAL IV SCH (09:33)
[2020-09-09] MEDS: FAMOTIDINE (10MG/ML) 2ML VL IV SCH ×2 (10:14→21:05)
[2020-09-09] MEDS ORDERED: BISACODYL 10 MG RECT SUPP PR ONE (11:30)
[2020-09-09] MEDS: POLYETHYLENE GLYCOL 17 GM PWDR PO PRN (12:12)
[2020-09-09 13:00] VITALS: BP 108/71
[2020-09-09 14:14] LABS: Folate (Folic Acid) 11.23 ng/mL (5.38-24)
[2020-09-09 16:59] VITALS: BP 116/81
[2020-09-09 20:00] VITALS: BP 104/60
[2020-09-09] MEDS: ATORVASTATIN 20 MG TAB PO SCH (21:05)
[2020-09-09 22:00] VITALS: BP 94/60
[2020-09-10] VITALS (7 sets, daily range): BP systolic 94–137; BP diastolic 57–89
[2020-09-10] MEDS: ACCU-CHEK COMFORT CURVE STRIP VI SCH ×3 (06:18→17:00)
[2020-09-10] MEDS: InsuLIN REG 1unit/0.01ml Soln (100units/ml) SC SCH ×3 (06:18→17:00)
[2020-09-10] MEDS ORDERED: LIDOCAINE VISCOUS 2% 15ML UD ONE (08:08)
[2020-09-10] MEDS ORDERED: diphenhdrAMINE HCL 50 MG/1 ML VL ONE (08:08)
[2020-09-10] MEDS: fentaNYL CITRATE 100 MCG/2 ML VL ONE ×2 (08:42→08:45)
[2020-09-10] MEDS: MIDAZOLAM HCL 5 MG/ML-1ML VIAL ONE ×2 (08:42→08:45)
[2020-09-10] MEDS ORDERED: PANT40T PO (09:09)
[2020-09-10] MEDS ORDERED: SUCR1SUS10 PO (09:09)
[2020-09-10] MEDS ORDERED: PANTOPRAZOLE 40 MG TAB PO SCH (10:00)
[2020-09-10] MEDS: ASPirin-EC 81 mg tab PO SCH (10:20)
[2020-09-10] MEDS: ZINC SULFATE 220mg CAP or TAB PO SCH (10:20)
[2020-09-10] MEDS: DOCUSATE SOD 100 MG CAP PO SCH (10:20)
[2020-09-10] MEDS: FAMOTIDINE (10MG/ML) 2ML VL IV SCH (10:20)
[2020-09-10] MEDS: MULTIPLE VITAMIN TAB PO SCH (10:21)
[2020-09-10] MEDS: FUROSEMIDE 20 MG/2 ML VIAL IV SCH (10:21)
[2020-09-10] MEDS: ASCORBIC ACID 500 MG TAB PO SCH (10:21)
[2020-09-10] MEDS: SUCRALFATE 1 GM/10 ML ORAL SUSP GT SCH ×2 (11:42→17:00)
== END 2020-09-10 19:40 | disposition home health service (06) | DRG 194 ==
LOC: ER 20:43 → TELE 23:55 → TELE-WESTW 09-07 02:30
PROVIDERS: ADMIT Nurse Practitioner Family; ATTEND Internal Medicine
PROC: 30230N1 Transfusion of Nonautologous Red Blood Cells into Peripheral Vein, Open Approach (ICD-10-PCS; principal; 2020-09-07)
PROC: 0DB78ZX Excision of Stomach, Pylorus, Via Natural or Artificial Opening Endoscopic, Diagnostic (ICD-10-PCS; 2020-09-10)
DX: I11.0 Hypertensive heart disease with heart failure (principal); K26.4 Chronic or unspecified duodenal ulcer with hemorrhage; E44.0 Moderate protein-calorie malnutrition; E87.1 Hypo-osmolality and hyponatremia; Z95.1 Presence of aortocoronary bypass graft; D64.9 Anemia, unspecified; E11.9 Type 2 diabetes mellitus without complications; E07.9 Disorder of thyroid, unspecified; E66.9 Obesity, unspecified; I50.23 Acute on chronic systolic (congestive) heart failure; Z20.822 Contact with and (suspected) exposure to COVID-19; K21.9 Gastro-esophageal reflux disease without esophagitis; E78.5 Hyperlipidemia, unspecified; R79.89 Other specified abnormal findings of blood chemistry; I25.10 Atherosclerotic heart disease of native coronary artery without angina pectoris; Z80.9 Family history of malignant neoplasm, unspecified; Z98.61 Coronary angioplasty status; Z79.899 Other long term (current) drug therapy; Z79.82 Long term (current) use of aspirin; Z79.84 Long term (current) use of oral hypoglycemic drugs; Z79.02 Long term (current) use of antithrombotics/antiplatelets
CPT/HCPCS: 36415; 43239; 71045; 71275; 80048; 80053; 81001; 82270; 82607; 82746; 82962; 83036; 83540; 83550; 83735; 83880; 84484; 85025; 85379; 85610; 85730; 86850; 86900; 86901; 86920; 87081; 87426; 93005; 93306; 93970; 94640; 96360; 99291; G0378; J1815; J2250; J3490

== ENCOUNTER 2020-10-11 10:06 | Inpatient (IN) | payer MEDICAID ==
[~2020-10-11] VITALS: Ht 165.1 cm; Wt 88.0 kg
[~2020-10-11 10:06] MED LIST changes: +AMIO200T33 PO; +CAR3125T PO; -CLOP75TA28 PO; -DOXY-338 PO; +FURO1TAB33 PO; +LISI2.5T47 PO; -LISI40TA11 PO; +MAGN400T40 PO; +MELA3TAB27 PO; -MET50T PO; +METO25TA5 PO; +PANT40T PO; +PERCOT PO; +SENN1TAB14 PO; +SUCR1SUS10 PO
[2020-10-11] MEDS ORDERED: PANTOPRAZOLE 40 MG/10 ML VIAL INJ IV STA (10:13)
[2020-10-11] MEDS ORDERED: SODIUM CHLORIDE 0.9% 500 ML IVB ONE (10:15)
[2020-10-11] MEDS ORDERED: ONDANSETRON HCL 4 MG/2 ML VIAL IV ONE (10:15)
[2020-10-11 10:54] LABS: Basophils # (auto) 0.1 10 ^3/uL (0-0.2); Basophils % (auto) 0.8 % (0.0-2.0); Eosinophils # (auto) 0.3 10 ^3/uL (0-0.8); Hematocrit 33.7 % (41.0-53.0); Hemoglobin 11.2 g/dL (13.5-17.5); Lymphocytes % (auto) 15.9 % (10.0-50.0); Mean Corpuscular Hemoglobin 27.1 pg (28.0-32.0); Mean Corpuscular Hgb Conc. 33.2 g/dL (32.0-36.0); Mean Corpuscular Volume 81.7 fL (80.0-100.0); Monocytes # (auto) 0.4 10 ^3/uL (0-1.3); Monocytes % (auto) 6.9 % (0.0-12.0); Neutrophils # (auto) 4.6 10 ^3/uL (1.6-8.6); Neutrophils % (auto) 71.4 % (37.0-80.0); Nucleated Red Blood Cells % 0.1 %; Red Blood Cells 4.12 10^6/uL (4.5-5.90); Red Cell Distribution Width 15.8 % (11.8-14.3); White Blood Cell 6.5 10^3/uL (4.4-10.8)
[2020-10-11 11:11] LABS: Calcium 8.9 mg/dL (8.5-10.1); Potassium 3.6 mmol/L (3.5-5.1)
[2020-10-11 11:17] LABS: BUN/Creatinine Ratio 19.2; Bilirubin, Total 0.5 mg/dL (0.2-1.0); Total Protein 7.6 g/dL (6.4-8.2)
[2020-10-11 13:20] LABS: Urine WBC None Seen /hpf (0 - 3)
[2020-10-11 13:37] LABS: Urine Bacteria NONE SEEN /hpf (None Seen); Urine Blood Negative /uL (Negative); Urine Specific Gravity 1.006 (1.001-1.035)
[2020-10-11] MEDS ORDERED: ACETAMINOPHEN 325 MG TAB PO PRN (14:30)
[2020-10-11] MEDS ORDERED: NITROGLYCERIN 0.4 MG SL TAB SL PRN (14:30)
[2020-10-11] MEDS ORDERED: ONDANSETRON HCL 4 MG/2 ML VIAL IV PRN (14:30)
[2020-10-11] MEDS ORDERED: MORPHINE SULFATE INJECTION 2 MG/ML SYRG IV PRN ×2 (14:30)
[2020-10-11] MEDS ORDERED: HYDROcodone-ACET 5/325MG TAB PO PRN (14:30)
[2020-10-11] MEDS ORDERED: LISINOPRIL 5 MG TAB PO PRN (14:45)
[2020-10-11] MEDS ORDERED: DEXTROSE (50%) 50ML SYRG IV PRN (15:15)
[2020-10-11] MEDS: ACCU-CHEK COMFORT CURVE STRIP VI SCH ×2 (17:00→21:32)
[2020-10-11] MEDS: InsuLIN REG 1unit/0.01ml Soln (100units/ml) SC SCH ×2 (17:00→21:32)
[2020-10-11] MEDS: FUROSEMIDE 40 MG TAB PO SCH (18:00)
[2020-10-11] MEDS: FERROUS SULFATE 325mg EC TAB PO SCH (18:19)
[2020-10-11] MEDS: SUCRALFATE 1 GM TAB PO SCH ×2 (18:20→21:31)
[2020-10-11] MEDS: ATORVASTATIN 20 MG TAB PO SCH (21:31)
[2020-10-11] MEDS: PANTOPRAZOLE 40 MG TAB PO SCH (21:31)
[2020-10-11] MEDS: ENOXAPARIN SOD 80 MG/0.8ML SYRINGE SC SCH (21:32)
[2020-10-11] MEDS: CARVEDILOL 3.125 MG TAB PO SCH (21:32)
[2020-10-11 22:00] VITALS: BP 112/70
[2020-10-12 05:00] VITALS: BP 120/75
[2020-10-12 06:48] LABS: Basophils # (auto) 0 10 ^3/uL (0-0.2); Basophils % (auto) 0.6 % (0.0-2.0); Eosinophils # (auto) 0.3 10 ^3/uL (0-0.8); Eosinophils % (auto) 6.2 % (0.0-7.0); Hematocrit 32.5 % (41.0-53.0); Hemoglobin 10.9 g/dL (13.5-17.5); Lymphocytes # (auto) 1.3 10 ^3/uL (0.4-5.4); Lymphocytes % (auto) 24.6 % (10.0-50.0); Mean Corpuscular Hemoglobin 27.1 pg (28.0-32.0); Mean Corpuscular Hgb Conc. 33.6 g/dL (32.0-36.0); Mean Corpuscular Volume 80.8 fL (80.0-100.0); Monocytes # (auto) 0.5 10 ^3/uL (0-1.3); Monocytes % (auto) 9.3 % (0.0-12.0); Neutrophils % (auto) 59.3 % (37.0-80.0); Nucleated Red Blood Cells % 0.1 %; Red Blood Cells 4.02 10^6/uL (4.5-5.90); Red Cell Distribution Width 15.9 % (11.8-14.3); White Blood Cell 5.1 10^3/uL (4.4-10.8)
[2020-10-12] MEDS: InsuLIN REG 1unit/0.01ml Soln (100units/ml) SC SCH ×4 (07:00→22:00)
[2020-10-12] MEDS: ACCU-CHEK COMFORT CURVE STRIP VI SCH ×4 (07:03→22:11)
[2020-10-12] MEDS: SUCRALFATE 1 GM TAB PO SCH ×4 (07:03→22:10)
[2020-10-12] MEDS: FUROSEMIDE 40 MG TAB PO SCH ×2 (07:03→17:49)
[2020-10-12 07:13] LABS: Albumin 3.8 g/dL (3.4-5.0); Calcium 8.4 mg/dL (8.5-10.1); Magnesium 1.7 mg/dL (1.6-2.6); Potassium 3.5 mmol/L (3.5-5.1)
[2020-10-12 07:15] LABS: BUN/Creatinine Ratio 23.5
[2020-10-12 07:20] LABS: Bilirubin, Total 0.4 mg/dL (0.2-1.0); Total Protein 7.3 g/dL (6.4-8.2)
[2020-10-12 08:15] VITALS: BP 108/76
[2020-10-12] MEDS: FERROUS SULFATE 325mg EC TAB PO SCH ×2 (08:52→17:48)
[2020-10-12 09:00] VITALS: BP 108/76
[2020-10-12] MEDS: ASPirin 81 mg TAB PO SCH (09:57)
[2020-10-12] MEDS: AMIODARONE HCL 200 MG TAB PO SCH (09:57)
[2020-10-12] MEDS: PANTOPRAZOLE 40 MG TAB PO SCH ×2 (09:58→22:10)
[2020-10-12] MEDS: ENOXAPARIN SOD 80 MG/0.8ML SYRINGE SC SCH (09:58)
[2020-10-12] MEDS: CARVEDILOL 3.125 MG TAB PO SCH ×2 (09:58→22:10)
[2020-10-12 13:00] VITALS: BP 107/75
[2020-10-12 17:06] VITALS: BP 129/91
[2020-10-12 22:00] VITALS: BP 113/77
[2020-10-12] MEDS: ATORVASTATIN 20 MG TAB PO SCH (22:10)
[2020-10-13 05:00] VITALS: BP 107/67
[2020-10-13 05:53] LABS: Basophils # (auto) 0 10 ^3/uL (0-0.2); Basophils % (auto) 0.4 % (0.0-2.0); Eosinophils # (auto) 0 10 ^3/uL (0-0.8); Eosinophils % (auto) 0.7 % (0.0-7.0); Hematocrit 32.1 % (41.0-53.0); Hemoglobin 10.9 g/dL (13.5-17.5); Lymphocytes # (auto) 1.3 10 ^3/uL (0.4-5.4); Lymphocytes % (auto) 18.8 % (10.0-50.0); Mean Corpuscular Hemoglobin 27.2 pg (28.0-32.0); Mean Corpuscular Volume 79.9 fL (80.0-100.0); Monocytes # (auto) 0.5 10 ^3/uL (0-1.3); Monocytes % (auto) 8.1 % (0.0-12.0); Neutrophils # (auto) 4.9 10 ^3/uL (1.6-8.6); Nucleated Red Blood Cells % 0.1 %; Red Blood Cells 4.02 10^6/uL (4.5-5.90); White Blood Cell 6.8 10^3/uL (4.4-10.8)
[2020-10-13 06:07] LABS: Potassium 3.5 mmol/L (3.5-5.1)
[2020-10-13 06:17] LABS: BUN/Creatinine Ratio 28.3; Calcium 8.9 mg/dL (8.5-10.1)
[2020-10-13] MEDS: SUCRALFATE 1 GM TAB PO SCH ×2 (06:26→11:52)
[2020-10-13] MEDS: ACCU-CHEK COMFORT CURVE STRIP VI SCH ×2 (06:27→11:53)
[2020-10-13] MEDS: FUROSEMIDE 40 MG TAB PO SCH (06:27)
[2020-10-13] MEDS: InsuLIN REG 1unit/0.01ml Soln (100units/ml) SC SCH ×2 (06:36→11:30)
[2020-10-13 08:15] VITALS: BP 108/75
[2020-10-13] MEDS: FERROUS SULFATE 325mg EC TAB PO SCH (08:45)
[2020-10-13 09:00] VITALS: BP 108/75
[2020-10-13] MEDS: ASPirin 81 mg TAB PO SCH (09:48)
[2020-10-13] MEDS: CARVEDILOL 3.125 MG TAB PO SCH (09:49)
[2020-10-13] MEDS: PANTOPRAZOLE 40 MG TAB PO SCH (09:49)
[2020-10-13] MEDS: AMIODARONE HCL 200 MG TAB PO SCH (09:49)
[2020-10-13 11:57] VITALS: BP 108/72
[2020-10-13 13:00] VITALS: BP 122/81
== END 2020-10-13 13:45 | disposition home or self-care (01) | DRG 241 ==
LOC: ER 10:06 → TELE 14:21 → TELE-CENTR 17:24
PROVIDERS: ADMIT Internal Medicine; ATTEND Internal Medicine
DX: K26.4 Chronic or unspecified duodenal ulcer with hemorrhage (principal); E11.22 Type 2 diabetes mellitus with diabetic chronic kidney disease; I49.5 Sick sinus syndrome; N17.9 Acute kidney failure, unspecified; I13.0 Hypertensive heart and chronic kidney disease with heart failure and stage 1 through stage 4 chronic kidney disease, or unspecified chronic kidney disease; I50.20 Unspecified systolic (congestive) heart failure; N18.30 Chronic kidney disease, stage 3 unspecified; D64.9 Anemia, unspecified; I25.10 Atherosclerotic heart disease of native coronary artery without angina pectoris; I25.5 Ischemic cardiomyopathy; Z80.9 Family history of malignant neoplasm, unspecified; Z82.49 Family history of ischemic heart disease and other diseases of the circulatory system; Z95.0 Presence of cardiac pacemaker; Z95.1 Presence of aortocoronary bypass graft; Z95.5 Presence of coronary angioplasty implant and graft; I25.2 Old myocardial infarction; R68.81 Early satiety; Z20.822 Contact with and (suspected) exposure to COVID-19
CPT/HCPCS: 36415; 74176; 80048; 80053; 81001; 82150; 82270; 82962; 83690; 83735; 84484; 85025; 87081; 87426; 93005; 96361; 96374; 96375; C9113; G0378; J1815; J2405